=== PATIENT | male | born 1985 | race Two or more races ===

== ENCOUNTER 2019-08-24 17:10 | Inpatient (IN) | payer OTHER ==
[~2019-08-24] VITALS: Ht 167.6 cm; Wt 89.3 kg
[2019-08-24 18:32] LABS: Basophils # (auto) 0 uL; Basophils % (auto) 0.4 % (0.0-2.0); Eosinophils # (auto) 0.2 uL; Eosinophils % (auto) 1.7 % (0.0-7.0); Hematocrit 45.2 % (41.0-53.0); Hemoglobin 15.3 g/dL (13.5-17.5); Lymphocytes # (auto) 2.6 uL; Lymphocytes % (auto) 29.4 % (10.0-50.0); Mean Corpuscular Hemoglobin 30.9 pg (28.0-32.0); Mean Corpuscular Hgb Conc. 33.8 g/dL (32.0-36.0); Mean Corpuscular Volume 91.3 fL (80.0-100.0); Monocytes # (auto) 0.7 uL; Monocytes % (auto) 7.8 % (0.0-12.0); Neutrophils # (auto) 5.4 uL; Neutrophils % (auto) 60.7 % (37.0-80.0); Platelet Count (auto) 267 10^3/uL (140-450); Red Blood Cells 4.95 10^6/uL (4.5-5.90); Red Cell Distribution Width 13.6 % (11.8-14.3); White Blood Cell 8.9 10^3/uL (4.4-10.8)
[2019-08-24] MEDS ORDERED: MORPHINE SULFATE 4 MG/ML SYR/VIAL IV ONE (18:45)
[2019-08-24] MEDS ORDERED: ONDANSETRON HCL 4 MG/2 ML VIAL IV ONE (18:45)
[2019-08-24 18:56] LABS: Calcium 9.1 mg/dL (8.5-10.1); Potassium 3.9 mmol/L (3.5-5.1)
[2019-08-24 19:08] LABS: Bilirubin, Total 0.7 mg/dL (0.2-1.0); Total Protein 7.9 g/dL (6.4-8.2)
[2019-08-24] MEDS ORDERED: ONDANSETRON HCL 4 MG/2 ML VIAL IV PRN (21:15)
[2019-08-24] MEDS ORDERED: ACETAMINOPHEN 325 MG TAB PO PRN (21:15)
[2019-08-24] MEDS: FAMOTIDINE 20 MG TAB PO SCH (22:00)
[2019-08-24 23:00] VITALS: BP 123/68
--- NOTE | 2019-08-24 23:01 | NUR ---
RECEIVED PT FROM ER NURSE POC REVIEWED, ORIENTED PT TO NURSE CALL LIGHT ALL QUESTIONS AND CONCERNS ADDRESSED
[2019-08-24 23:12] VITALS: BP 123/68
[2019-08-24] MEDS ORDERED: ACET-1156 PO (23:46)
[2019-08-24] MEDS ORDERED: CALC625T31 PO (23:46)
[2019-08-24] MEDS ORDERED: IBUP800T24 PO (23:46)
[2019-08-24] MEDS ORDERED: DOCU-94 PO (23:47)
[2019-08-25] MEDS ORDERED: INFLUENZA QUAD 2019-2020 0.5ml SYRG IM ONE (00:15)
--- NOTE | 2019-08-25 01:30 | NUR ---
resting with eyes closed resp even and unlabored, call light within reach, no c/o jolanta or discomfort,
--- NOTE | 2019-08-25 04:39 | NUR ---
mrsa swab of the nares sent to lab per protocol, pt received flu vaccine at request
[2019-08-25 05:02] VITALS: BP 100/63
--- NOTE | 2019-08-25 06:35 | NUR ---
resting with eyes closed no c/o discomfort
--- NOTE | 2019-08-25 06:48 | NUR ---
report given to am nurse poc reviewed
[2019-08-25 07:33] LABS: Urine WBC None Seen /hpf (0 - 3)
[2019-08-25 07:45] LABS: Urine Bacteria NONE SEEN /hpf (None Seen); Urine Blood Negative /uL (Negative); Urine Mucus FEW (None Seen); Urine Specific Gravity 1.023 (1.001-1.035)
--- NOTE | 2019-08-25 07:45 | NUR ---
PATIENT ROUNDS PATIENT LYING IN BED, NO DISTRESS NOTED, BED IN LOWEST POSITION SIDE RAILS UP X2 CALL LIGHT WITHIN REACH. PATIENT STATED PAIN 10/10-WILL MEDICATE FOR PAIN PER MD ORDERS. PATIENT ENCOURAGED TO CALL IF THEY NEED ANYTHING-GUARDS AT BEDSIDE.
[2019-08-25] MEDS: HYDROcodone-ACET 5/325MG TAB PO PRN ×2 (07:57→16:10)
[2019-08-25 08:35] VITALS: BP 128/76
[2019-08-25] MEDS: FAMOTIDINE 20 MG TAB PO SCH ×2 (09:20→21:25)
--- NOTE | 2019-08-25 10:20 | NUR ---
PASSWORD RECEIVED CALL FROM [facility] REGARDING PATIENT UPDATE--AFTER VERIFYING CORRECT PASSWORD OF "[facility]" FROM [employer] AND [facility] UPDATE WAS PROVIDED.
[2019-08-25 12:30] VITALS: BP 103/60
--- NOTE | 2019-08-25 12:45 | NUR ---
DR RENEA MEIER CALLED AND STATED PATIENT CAN BE TREATED OUTPATIENT FOR CALCIFIED PENILE LESION. NO INTERVENTION AT THIS TIME.
--- NOTE | 2019-08-25 16:15 | NUR ---
PAIN PATIENT ASKING FOR PAIN MEDICATION, PATIENT MEDICATED FOR PAIN PER MD ORDERS. GUARDS AT BEDSIDE. WILL CONTINUE TO MONITOR.
[2019-08-25 17:23] VITALS: BP 110/68
--- NOTE | 2019-08-25 19:44 | NUR ---
Opening Shift Note Received report and assumed care of patient. Patient is awake, alert and oriented. No signs or symptoms of distress noted, denies pain. Instructed patient on plan of care and to call for assistance as needed. Guards at bedside, will continue to monitor.
[2019-08-25 20:00] VITALS: BP 115/58
[2019-08-25 22:00] VITALS: BP 115/58
[2019-08-26 05:00] VITALS: BP 110/65
[2019-08-26 06:13] LABS: Basophils # (auto) 0 uL; Basophils % (auto) 0.7 % (0.0-2.0); Eosinophils # (auto) 0.2 uL; Eosinophils % (auto) 4.3 % (0.0-7.0); Hemoglobin 14.1 g/dL (13.5-17.5); Lymphocytes # (auto) 1.4 uL; Lymphocytes % (auto) 29.3 % (10.0-50.0); Mean Corpuscular Hemoglobin 31.2 pg (28.0-32.0); Mean Corpuscular Hgb Conc. 34.3 g/dL (32.0-36.0); Monocytes # (auto) 0.5 uL; Monocytes % (auto) 9.9 % (0.0-12.0); Neutrophils # (auto) 2.7 uL; Neutrophils % (auto) 55.8 % (37.0-80.0); Nucleated Red Blood Cells % 0.1 %; Platelet Count (auto) 212 10^3/uL (140-450); Red Cell Distribution Width 13.5 % (11.8-14.3); White Blood Cell 4.8 10^3/uL (4.4-10.8)
[2019-08-26 06:26] LABS: INR 0.95 (0.9-1.15); Partial Thromboplastin Time 26.1 sec (23.64-32.05)
[2019-08-26 06:39] LABS: Albumin 3.2 g/dL (3.4-5.0); BUN/Creatinine Ratio 28.6; Calcium 8.2 mg/dL (8.5-10.1); Magnesium 2.3 mg/dL (1.6-2.6)
[2019-08-26 06:42] LABS: Bilirubin, Total 0.4 mg/dL (0.2-1.0); Total Protein 6.7 g/dL (6.4-8.2)
--- NOTE | 2019-08-26 07:01 | NUR ---
Patient currently sleeping. No signs or symptoms of distress noted. Call light is within reach. Guards at bedside. Will endorse care to AM nurse.
--- NOTE | 2019-08-26 07:30 | NUR ---
Opening Shift Note Assumed care of patient, awake, alert, and oriented. No S/S of distress/SOB or pain. Instructed on POC and to call for assist PRN with call light within reach. Bed in low/locked position, side rails upx2. Will continue to monitor for changes Q1hr and PRN.
[2019-08-26 08:00] VITALS: BP 137/70
[2019-08-26] MEDS: FAMOTIDINE 20 MG TAB PO SCH ×2 (08:09→21:55)
[2019-08-26] MEDS: HYDROcodone-ACET 5/325MG TAB PO PRN (08:09)
--- NOTE | 2019-08-26 08:20 | NUR ---
MD ROUNDS DR BROWN AT BEDSIDE DISCUSSING POC WITH PATIENT. ALL QUESTIONS/CONCERNS ANSWERED. NEW ORDERS RECEIVED/CARRIED OUT. WILL CONTINUE TO MONITOR
--- NOTE | 2019-08-26 08:30 | NUR ---
ISAAC GRAY CM RE: AUTHORIZATION FOR SURGICAL PROCEDURE
--- NOTE | 2019-08-26 11:55 | NUR ---
PHONE CALL RECEIVED PHONE CALL FROM INGA RYAN RN, AT [facility]. UPDATED CONNOR ON PATIENT POC
[2019-08-26] MEDS: SODIUM CHLORIDE 0.9% 1,000 ML IV SCH ×2 (12:35→18:56)
[2019-08-26 13:00] VITALS: BP 108/64
--- NOTE | 2019-08-26 13:08 | NUR ---
Spoke to Frida Chan at [employer] in medical dept and she will get SS order consult to her supervisor nutritional yeast to get auth for surgery. Dustin does not have an ETA on approval
--- NOTE | 2019-08-26 16:03 | NUR ---
Faxed over paperwork from [employer] to Dr. Coyle's office and see if he will accept the paperwork as auth for sx
--- NOTE | 2019-08-26 16:30 | NUR ---
PAGED CM PAGED DARBY CHEN RE: AUTHORIZATION FOR SURGICAL. AWAITING RETUNR CALL PHONE CALL DARBY CHEN, RETURNED PHONE CALL RE: AUTHORIZATION FOR SURGICAL. SEE SS NOTES
[2019-08-26 17:00] VITALS: BP 126/72
--- NOTE | 2019-08-26 19:29 | NUR ---
Opening Shift Note Received report and assumed care of patient. No signs or symptoms of distress noted, patient denies pain. Guards at bedside. Instructed patient on plan of care and to call for assistance as needed. Will continue to monitor.
[2019-08-26 20:00] VITALS: BP 110/60
[2019-08-26 22:00] VITALS: BP 110/60
[2019-08-27] MEDS: SODIUM CHLORIDE 0.9% 1,000 ML IV SCH ×2 (00:29→10:52)
[2019-08-27 05:00] VITALS: BP 107/60
--- NOTE | 2019-08-27 06:55 | NUR ---
Closing Note Patient is sleeping at this time. No signs or symptoms of distress noted. Guards at bedside. Will endorse care to AM nurse.
[2019-08-27 07:04] LABS: Basophils # (auto) 0 uL; Basophils % (auto) 0.8 % (0.0-2.0); Eosinophils # (auto) 0.2 uL; Eosinophils % (auto) 4.9 % (0.0-7.0); Hematocrit 40.6 % (41.0-53.0); Hemoglobin 13.9 g/dL (13.5-17.5); Lymphocytes # (auto) 1.7 uL; Lymphocytes % (auto) 36.9 % (10.0-50.0); Mean Corpuscular Hemoglobin 31.4 pg (28.0-32.0); Mean Corpuscular Hgb Conc. 34.3 g/dL (32.0-36.0); Mean Corpuscular Volume 91.6 fL (80.0-100.0); Monocytes # (auto) 0.5 uL; Monocytes % (auto) 10.4 % (0.0-12.0); Neutrophils # (auto) 2.2 uL; Platelet Count (auto) 210 10^3/uL (140-450); Red Blood Cells 4.43 10^6/uL (4.5-5.90); Red Cell Distribution Width 13.3 % (11.8-14.3); White Blood Cell 4.7 10^3/uL (4.4-10.8)
[2019-08-27 07:11] LABS: Albumin 3.1 g/dL (3.4-5.0); Calcium 8.1 mg/dL (8.5-10.1); INR 0.97 (0.9-1.15); Magnesium 2.1 mg/dL (1.6-2.6); Partial Thromboplastin Time 26.7 sec (23.64-32.05); Potassium 4.1 mmol/L (3.5-5.1)
[2019-08-27 07:16] LABS: Bilirubin, Total 0.3 mg/dL (0.2-1.0); Total Protein 6.4 g/dL (6.4-8.2)
--- NOTE | 2019-08-27 07:52 | NUR ---
PATIENT ROUNDS PATIENT SITTING IN BED, NO DISTRESS NOTED, RR EQUAL AND NONLABORED, NO DISTRESS NOTED. BED IN LOWEST POSITION, SIDE RAILS UP X2, CALL LIGHT WITHIN REACH, ALL QUESTIONS AND CONCERNS ADDRESSED, GUARDS AT BEDSIDE. WILL CONTINUE TO MONITOR AND INITIATE PLAN OF CARE.
[2019-08-27 09:00] VITALS: BP 114/55
[2019-08-27] MEDS: FAMOTIDINE 20 MG TAB PO SCH ×2 (10:51→21:52)
--- NOTE | 2019-08-27 12:30 | NUR ---
SURGICAL UPDATE THIRD LOADER SPOKE WITH DR Sarah BROWN REGARDING PENDING AUTHORIZATION FOR SURGERY, PER DR BROWN PATIENT HAS BEEN AUTHORIZED FOR SURGERY AND PLAN FOR SURGERY ON Friday08/30/2019. PATIENT AND GUARDS AT BEDSIDE HAVE BEEN UPDATED. PATIENT TO BE NPO FRIDAY NIGHT AT MIDNIGHT.
[2019-08-27 13:00] VITALS: BP 120/68
--- NOTE | 2019-08-27 13:02 | NUR ---
DR SALCEDO IN TO SEE PATIENT PATIENT UPDATED ON POC-GUARDS AT BEDSIDE.
[2019-08-27 17:00] VITALS: BP 113/57
--- NOTE | 2019-08-27 20:00 | NUR ---
RECEIVE IN BED WITH GUARDS AT BEDSIDE NO VOICED COMPLAINTS
[2019-08-27 21:46] VITALS: BP 120/63
[2019-08-27] MEDS: HYDROcodone-ACET 5/325MG TAB PO PRN (21:57)
[2019-08-28] MEDS: SODIUM CHLORIDE 0.9% 1,000 ML IV SCH ×2 (02:00→11:32)
[2019-08-28 04:59] VITALS: BP 103/57
--- NOTE | 2019-08-28 07:30 | NUR ---
Opening Shift Note Assumed care of patient, awake and alert. No S/S of distress/SOB or pain room air. Instructed on POC and to call for assist PRN, will continue to monitor for changes Q1hr and PRN. Bed in low and locked position, rails up x2, no-slip socks on. Guards at bedside.
[2019-08-28 08:30] VITALS: BP 122/69
[2019-08-28] MEDS: FAMOTIDINE 20 MG TAB PO SCH (09:28)
[2019-08-28] MEDS: HYDROcodone-ACET 5/325MG TAB PO PRN (09:28)
[2019-08-28] MEDS ORDERED: ENOXAPARIN SOD 40 MG/0.4 ML SYRINGE SC SCH (10:00)
--- NOTE | 2019-08-28 10:30 | NUR ---
PATIENT SHOWER WITH ASSISTANCE OF BEDSIDE GUARDS, PATIENT SHOWERED AFTER SAFETY PRECAUTIONS RE-INFORCED, COMPLETE LINEN CHANGE COMPLETED. PATIENT TOLERATED IT WELL.
--- NOTE | 2019-08-28 10:45 | NUR ---
IV removal and IV insertion IV DC'd with clean sterile technique to left ac due to pain at site and leaking, catheter fully intact on removal. Pressure dressing applied to site. Patient tolerated well. IV access obtained, via clean sterile technique by inserting 20 gauge catheter at left wrist after 1 attempt. IV secured properly. No trauma to site. Patient tolerated well.
--- NOTE | 2019-08-28 11:28 | NUR ---
Nutrition Assessment Notes: please see attached link for complete assessment Est. Needs ABW [id number] kcal (23-25 kcal/kgBW), 75-82 gms pro (1.0-1.1 gms/kgBW). Will continue to monitor pertinent labs and reassess nutrient need prn Addendum: 08/28/19 at [address] Amended: Links added.
[2019-08-28 12:30] VITALS: BP 110/64
--- NOTE | 2019-08-28 12:40 | NUR ---
DR SALCEDO AT BEDSIDE NO COMPLAINTS BY PATIENT, ORDERS TO HOLD NORMAL SALINE UNTIL DAY OF SURGERY AND HOLD LOVENOX ON DAY OF SURGERY.
[2019-08-28 17:06] VITALS: BP 126/59
--- NOTE | 2019-08-28 19:00 | NUR ---
Opening Shift Note Assumed care of patient, awake and alert. 2 guards on bedside. No S/S of distress/SOB or pain. Instructed on POC and to call for assist PRN, will continue to monitor for changes Q1hr and PRN.
[2019-08-28 21:54] VITALS: BP 97/48
[2019-08-29 04:46] VITALS: BP 96/57
[2019-08-29] MEDS: FAMOTIDINE 20 MG TAB PO SCH ×3 (06:33→21:34)
--- NOTE | 2019-08-29 07:30 | NUR ---
Opening Shift Note Assumed care of patient, awake and alert. No S/S of distress/SOB or pain on room air. Instructed on POC and to call for assist PRN, will continue to monitor for changes Q1hr and PRN. Bed in low and locked position, rails up x2, no-slip socks on. Guards at bedside.
[2019-08-29 08:30] VITALS: BP 115/60
[2019-08-29] MEDS ORDERED: ENOXAPARIN SOD 40 MG/0.4 ML SYRINGE SC SCH (10:00)
--- NOTE | 2019-08-29 10:30 | NUR ---
DR SALCEDO AT BEDSIDE NO NEW ORDERS
[2019-08-29 12:30] VITALS: BP 145/83
[2019-08-29 12:48] VITALS: BP 129/73
--- NOTE | 2019-08-29 19:00 | NUR ---
Opening Shift Note Assumed care of patient, awake and alert.2 guards on bedside No S/S of distress/SOB or pain. Insructed on POC and to callfor assist PRN, will continue to monitor for changes Q1hr and PRN.
[2019-08-29 22:00] VITALS: BP 126/59
[2019-08-30 05:00] VITALS: BP 120/59
[2019-08-30 06:06] LABS: Basophils # (auto) 0 uL; Basophils % (auto) 0.8 % (0.0-2.0); Eosinophils # (auto) 0.2 uL; Hematocrit 42.9 % (41.0-53.0); Hemoglobin 14.6 g/dL (13.5-17.5); Lymphocytes # (auto) 1.9 uL; Lymphocytes % (auto) 35.5 % (10.0-50.0); Mean Corpuscular Hemoglobin 30.9 pg (28.0-32.0); Mean Corpuscular Volume 90.8 fL (80.0-100.0); Monocytes # (auto) 0.6 uL; Monocytes % (auto) 11.2 % (0.0-12.0); Neutrophils # (auto) 2.6 uL; Neutrophils % (auto) 48.5 % (37.0-80.0); Platelet Count (auto) 227 10^3/uL (140-450); Red Blood Cells 4.73 10^6/uL (4.5-5.90); Red Cell Distribution Width 13.4 % (11.8-14.3); White Blood Cell 5.4 10^3/uL (4.4-10.8)
[2019-08-30 06:10] LABS: INR 0.97 (0.9-1.15); Partial Thromboplastin Time 26.5 sec (23.64-32.05)
[2019-08-30 06:13] LABS: Albumin 3.3 g/dL (3.4-5.0); Calcium 8.5 mg/dL (8.5-10.1); Potassium 4.1 mmol/L (3.5-5.1)
[2019-08-30 06:15] LABS: BUN/Creatinine Ratio 20.5
[2019-08-30 06:18] LABS: Bilirubin, Total 0.3 mg/dL (0.2-1.0); Total Protein 6.7 g/dL (6.4-8.2)
[2019-08-30 09:00] VITALS: BP 120/75
[2019-08-30] MEDS: FAMOTIDINE 20 MG TAB PO SCH (09:12)
[2019-08-30] MEDS: SODIUM CHLORIDE 0.9% 1,000 ML IV SCH ×3 (09:47→20:00)
[2019-08-30] MEDS ORDERED: GLYCOPYRROLATE 0.2 MG/ML 1ML VIAL IV ONE (10:08)
[2019-08-30] MEDS ORDERED: ceFAZolin 1GM VL ONE (10:08)
[2019-08-30] MEDS ORDERED: LIDOCAINE 1% HCL (LOCAL ANESTH.) INJ 20ML MDV ONE (10:09)
[2019-08-30] MEDS: BUPIVACAINE 0.25% INJ 50ML VIAL ONE ×2 (10:09→18:14)
[2019-08-30 13:00] VITALS: BP 111/67
[2019-08-30] MEDS ORDERED: ceFAZolin 1GM/50ML 50 ML IV ONE (13:54)
--- NOTE | 2019-08-30 14:05 | NUR ---
PT OFF FLOOR TO PRE OP
[2019-08-30] MEDS ORDERED: KETOROLAC TROMETH 30 MG/ML 1ML VIAL IV ONE (15:15)
[2019-08-30] MEDS ORDERED: ePHEDrine SULFATE 50 MG/ML AMP IV PRN (15:15)
[2019-08-30] MEDS ORDERED: HYDROmorphone HCL 2 MG/ML VL IV PRN (15:15)
[2019-08-30] MEDS ORDERED: ONDANSETRON HCL 4 MG/2 ML VIAL IV PRN (15:15)
[2019-08-30] MEDS ORDERED: MORPHINE SULFATE 4 MG/ML SYR/VIAL IV PRN (15:15)
[2019-08-30] MEDS ORDERED: LABETALOL HCL 5 MG/ML 4ML SYRINGE IV PRN (15:15)
[2019-08-30] MEDS ORDERED: MIDAZOLAM HCL 1MG/1ML-2 ML VIAL IV PRN (15:15)
[2019-08-30] MEDS ORDERED: NEOSTIGMINE 1 MG/ML INJ (10mg/10ML VIAL) IV ONE (15:16)
[2019-08-30] MEDS ORDERED: MEPERIDINE HCL (25 MG/ML) 1ML VIAL ONE (15:16)
[2019-08-30] MEDS ORDERED: fentaNYL CITRATE 100 MCG/2 ML VL ONE ×3 (15:16→16:52)
[2019-08-30] MEDS ORDERED: MIDAZOLAM HCL 1MG/1ML-2 ML VIAL ONE (15:16)
[2019-08-30] MEDS ORDERED: PROPOFOL 10 MG/ML 20 ML IV ONE (15:23)
[2019-08-30] MEDS ORDERED: DexAMETHasone SOD PHOS 10MG/1ML VIAL INJ ONE (15:23)
[2019-08-30] MEDS ORDERED: NEOSTIGMINE 1 MG/ML INJ (10mg/10ML VIAL) ONE (17:44)
[2019-08-30] MEDS ORDERED: KETOROLAC TROMETH 30 MG/ML 1ML VIAL ONE (17:44)
[2019-08-30] MEDS ORDERED: GLYCOPYRROLATE 0.2 MG/ML 1ML VIAL ONE (17:44)
[2019-08-30] MEDS ORDERED: HYDROmorphone HCL 2 MG/ML VL ONE (18:43)
--- NOTE | 2019-08-30 19:35 | NUR ---
PT BACK TO FLOOR FROM OR. PT IN STABLE CONDITION. 3 DRESSINGS CLEAN, DRY AND INTACT.WILL CONTINUE TO MONITOR.
[2019-08-30 21:15] VITALS: BP 109/53
[2019-08-31 04:06] VITALS: BP 108/64
[2019-08-31] MEDS: FAMOTIDINE 20 MG TAB PO SCH ×2 (06:19→09:44)
[2019-08-31] MEDS: SODIUM CHLORIDE 0.9% 1,000 ML IV SCH (06:20)
[2019-08-31 09:13] VITALS: BP 106/53
[2019-08-31] MEDS: HYDROcodone-ACET 5/325MG TAB PO PRN (09:52)
[2019-08-31] MEDS ORDERED: ENOXAPARIN SOD 40 MG/0.4 ML SYRINGE SC SCH (10:00)
--- NOTE | 2019-08-31 11:21 | NUR ---
CHAVEZ CATHETER REMOVED. TOLERATED WITHOUT DIFFICULTY.
--- NOTE | 2019-08-31 12:04 | NUR ---
Nutrition Follow-up Notes Wt.: 89.3 kg Pt was sleeping with guards by bedside. per records pt had sx for hernia on 08/30. pt with no distress noted now advanced to full liq diet with no PO recorded post sx. Est. Needs ABW [id number] kcal (23-25 kcal/kgBW), 75-82 gms pro (1.0-1.1 gms/kgBW). Will continue to monitor pertinent labs and reassess nutrient need prn Labs: ALB 3.3 L. rest lab wnl Skin: Babak scale 23 low risk incision at site of sx per RN doc GI: Pt had 1 BM 08/30 per documentation lead. PES: Decreased nutrient needs r.t adiposity aeb pt`s high BMI of 31.1 kgm2 Altered nutrition related lab values r/t current/chronic medical condition aeb hypocalcemia, mild hypoalb Will continue to monitor PO intake, skin status, pertinent labs and weight trend. F/u in 3-5 days. Rec.: 1.) advance diet as medically feasible. 2) refer to [facility] dietitian on DC. 3) continue current plan of care
[2019-08-31 12:30] VITALS: BP 110/58
[2019-08-31 16:53] VITALS: BP 127/76
--- NOTE | 2019-08-31 18:44 | NUR ---
DISCHARGE INSTRUCTIONS GIVEN TO GUARDS. PT LEFT FACILITY WITH GUARDS IN ATTENDANCE.
== END 2019-08-31 18:43 | disposition other institution (70) | DRG 351 ==
LOC: ER 17:10 → EEVIPCON 17:10 → OVERFLOW 17:11 → WEST WING 22:38
PROVIDERS: ADMIT Nurse Practitioner; ATTEND Internal Medicine
PROC: 8E0W4CZ Robotic Assisted Procedure of Trunk Region, Percutaneous Endoscopic Approach (ICD-10-PCS; 2019-08-30)
PROC: 0YU54JZ Supplement Right Inguinal Region with Synthetic Substitute, Percutaneous Endoscopic Approach (ICD-10-PCS; principal; 2019-08-30 15:12)
DX: K40.30 Unilateral inguinal hernia, with obstruction, without gangrene, not specified as recurrent (principal); E44.1 Mild protein-calorie malnutrition; E86.0 Dehydration; E11.9 Type 2 diabetes mellitus without complications; N50.89 Other specified disorders of the male genital organs; Z83.3 Family history of diabetes mellitus; Z68.31 Body mass index [BMI] 31.0-31.9, adult; Z79.899 Other long term (current) drug therapy; Z23 Encounter for immunization
CPT/HCPCS: 36415; 71045; 74176; 80053; 81001; 82550; 83735; 84100; 85025; 85610; 85730; 86850; 86900; 86901; 87081; 96374; C1713; C1781; G0378; J0690; J1100; J1885; J2001; J2250; J2405; J2704; J3490